=== PATIENT | male | born 1980 | race American Indian/Alaskan Native ===

== ENCOUNTER 2024-07-24 09:15 | Outpatient (RCR) | payer BC, SELFPAY ==
--- NOTE | 2024-07-24 11:06 | CTCCONSULT_ITS ---
[address] [address] RE: FABIOLA PRITCHETT D.O.B.: 1980 AGE: 44 DATE OF CONSULTATION: 07/24/2024 DIAGNOSIS: History of pulmonary embolism likely provoked REFERRING PHYSICIAN: Emerita Tomas([facility]) PRIMARY PHYSICIAN :Ollie Estevez REASON FOR CONSULTATION: Provoked PE during COVID in 2020 on Eliquis HISTORY OF PRESENT ILLNESS: Patient is 44-year-old male who is a chronic cigarette smoker and current smoker. Patient is overwei ght and is here to discuss Eliquis. Patient was diagnosed with a pulmonary embolism when he had COVI D in 2019. He does not know if he was ever diagnosed with a cardiac condition like atrial fibrillati on. Patient has been on Eliquis for last 4 years. Patient is here to discuss that time. 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 GI: No nausea, vomiting, diarrhea or constipation. CVS: No palpitations or angina pains. Respiratory: No cough, chest pain or shortness of breath. VITAL SIGNS: Date 07/24/2024 Time 9:26 AM Vital Signs, Weight and PS ? ??T (F) (F) 98.8 ??P 78 ??B/P (mmHg) 120/81 ??Height (in) (inch) 67 ??Weight (lb) (lb) 216 ??BSA(D) (m*2) 2.09 PHYSICAL EXAMINATION: Conjunctivae is white. Oral cavity is dry. Chest is clear to auscultation. No wheezes or rales audible. CVS: Rhythm regular, no murmurs or gallops present. Abdomen is soft. No hepatosplenomegaly. Extremities: No pedal edema or cyanosis. LABORATORY DATA: Date Time ASSESSMENT: Pulmonary embolism likely provoked COVID is known to cause blood clots I am not sure if patient have any other underlying condition which makes him at high risk of clot oth er than his history of smoking and body weight PLAN: ??Will get records from cardiology for Holter monitor and echo and cardiology notes Will order factor V Leyden deficiency testing protein CandS along with a JAK2 mutation Protein CandS may be possibly normal or low or high as patient is on Eliquis Will check for D-dimer to see if patient have persistent clot If D-dimers are high then we can do CTA chest Advised to continue Eliquis for now and follow-up on the labs and records RTC in 6 to 8 weeks Patient likely have a provoked clot and do not require long-term anticoagulation Before stopping Eliquis will need to review the records and further testing results ORDERS: TAI - 2 Mutation Zhou CALDERON Follow Up 2 Months RETURN TO CLINIC: cc: Moe Estevez, Referring: Emerita Tomas([facility]) Electronically Signed 07/24/2024 at 11:04 AM Ollie Estevez MD Patient: FABIOLA PRITCHETT : 1980 MR#: [id number] Account: [id number] FOLLOW UP NOTE Page 2 of 2
== END 2024-08-19 23:59 | disposition home or self-care (01) ==
LOC: SCTC 09:15
PROVIDERS: PCP Nurse Practitioner Family; Referring Provider Nurse Practitioner Family; Visit Provider Internal Medicine Hematology & Oncology
DX: Z09 Encounter for follow-up examination after completed treatment for conditions other than malignant neoplasm (principal); Z86.711 Personal history of pulmonary embolism; Z79.01 Long term (current) use of anticoagulants
CPT/HCPCS: 99213; G0463

== ENCOUNTER → 2024-07-28 | Outpatient (CLI) | payer BC, SELFPAY ==
[2024-07-28 10:33] LABS: Misc Send Out* See Sep Rpt
[2024-07-28 11:54] LABS: D-Dimer < 250 ng/mL (<600)
[2024-07-31 06:56] LABS: Protein C Antigen, Total* 108 % normal (70-140); Protein S Antigen, Total* 98 % normal (70-140)
[2024-08-04 06:53] LABS: Factor V Leiden Mutation NEGATIVE
== END | disposition home or self-care (01) ==
LOC: SCTO 10:07
PROVIDERS: PCP Nurse Practitioner Family; Referring Provider Internal Medicine Hematology & Oncology; Visit Provider Internal Medicine Hematology & Oncology
DX: D68.59 Other primary thrombophilia (principal)
CPT/HCPCS: 36415; 81219; 81241; 81270; 81279; 81339; 85302; 85305; 85379

== ENCOUNTER 2024-09-04 23:49 | Emergency (ER) | payer BC, SELFPAY ==
[2024-09-04 23:50] VITALS: BMI 33.5
[2024-09-05 00:33] VITALS: BP 152/89; PULSE 86; RESP 20; TEMP 37.1; O2SAT 94
--- NOTE | 2024-09-05 00:38 | XR_ITS ---
Examination: PA lateral chest 2 views TECHNIQUE: Upright PA lateral chest 2 views Exam date and time: September 05, 2024 1246 hours INDICATIONS: Onset shortness of breath today. FINDINGS: Normal heart size Lungs are clear. The osseous structures are intact IMPRESSION: No active disease
--- NOTE | 2024-09-05 00:38 | PD.EDRME ---
Rapid Medical Screening Exam RME Arrival date/time: 09/04/24 23:49 44 yo male present to ED for c/o of SOB for 1 day I have greeted and performed a focused initial assessment of this patient. A comprehensive ED assessment and evaluation of the patient, analysis of all test results, and completion of the medical decision making process will be conducted by additional ED providers. Chief Complaint: Shortness of Breath/Dyspnea Time Seen by Provider: 09/05/24 00:07 Vital signs: Vital Signs Temperature 98.7 F 09/05/24 00:33 Pulse Rate 86 09/05/24 00:33 Respiratory Rate 20 09/05/24 00:33 Blood Pressure 152/89 H 09/05/24 00:33 Pulse Oximetry (%) 94 L 09/05/24 00:33 Oxygen Delivery Method Room Air 09/05/24 00:33
[2024-09-05] MEDS: predniSONE 20 MG TABLET 60 MG PO (00:54)
[2024-09-05 01:20] LABS: Basophils % (Auto) 1 % (0-2.5); Eosinophils # (Auto) 0.4 Thou/mm3 (0.0-0.5); Eosinophils % (Auto) 5 % (0-10); Hematocrit 44.9 % (41.0-53.0); Hemoglobin 15.6 g/dL (13.5-16.0); Immature Granulocytes % (Auto) 0 % (0-0); Immature Granulocytes Auto 0.02 Thou/mm3 (0.00-0.00); Lymphocytes % (Auto) 24 % (10-50); Mean Corpuscular HGB Conc 34.7 g/dl (31.0-37.0); Mean Corpuscular Hemoglobin 30.5 pg (25.0-35.0); Mean Corpuscular Volume 88 fL (80-100); Monocytes # (Auto) 0.8 Thou/mm3 (0.0-0.8); Monocytes % (Auto) 10 % (0-12); Neutrophils % (Auto) 61 % (37-80); Nucleated Red Blood Cell % 0 /100 WBC (0); Platelet Count 234 Thou/mm3 (140-440); RDW Standard Deviation 39.7 fL (35.1-43.9); Red Blood Count 5.12 Miln/mm3 (4.50-5.90); White Blood Count 8.3 Thou/mm3 (3.8-10.6)
[2024-09-05 01:37] LABS: B-Type Natriuretic Peptide < 20 pg/mL (0-100)
[2024-09-05 01:39] LABS: Alanine Aminotransferase 27 U/L (10-49); Albumin/Globulin Ratio 1.8 (1.2-2.2); Alkaline Phosphatase 94 U/L (46-116); Anion Gap 8 (7-16); Aspartate Amino Transferase 25 U/L (0-34); BUN/Creatinine Ratio 8 Ratio (12-20); Bilirubin,Total 0.9 mg/dL (0.3-1.2); Blood Urea Nitrogen 8 mg/dL (9-23); Calcium 10.2 mg/dL (8.3-10.6); Calcium (Corrected) 10.2 mg/dL (8.5-10.1); Carbon Dioxide 25.4 mMol/L (20.0-31.0); Chloride 105 mMol/L (98-107); Estimated Creatinine Clearance 102.5 mL/min (>60); Globulin 2.8 gm/dL (2.3-3.5); Glucose 117 mg/dL (74-106); Lipase 36 U/L (12-53); Osmolality,Calculated 274 (275-295); Potassium 3.9 mMol/L (3.4-5.1); Sodium 138 mMol/L (136-145); Total Protein 7.8 gm/dL (5.7-8.2); Troponin I < 0.020 ng/mL (0.0-0.045); eGFR > 60 See Note
[2024-09-05 02:05] VITALS: BP 144/91; PULSE 89; RESP 18; TEMP 36.4; O2SAT 96
--- NOTE | 2024-09-05 02:05 | EDNOTE_ITS ---
ED SOB =RME/HPI General Chief Complaint: Shortness of Breath/Dyspnea Stated Complaint: SOB, STREP THROAT Time Seen by Provider: 09/05/24 00:07 Arrival date/time: 09/04/24 23:49 43 year old male present to emergency room with c/o of shortness of breath, sore throat, for 1 days SEVERITY: Symptoms are described as being severe with limitations on activities of daily living CONTEXT: The patient is unable to identify any inciting events. DURATION/TIMING: The symptoms started approximately one day ago and have been constant since and have been progressive getting worse. ASSOCIATED SYMPTOMS: The patient is unable to identify any other associated symptoms. MODIFYING FACTORS: The patient is unable to identify any alleviating or aggravating symptoms. PERTINENT ROS: no fevers, no cough, no pleuritic pain, no ripping or tearing sensations, denies any lower extremity edema and no unilateral swelling, no ch est pain no nausea,vomiting, diarrhea, no dizziness/headache no rash no loc/syncope episode no abd/back pain no dsyuria,urgency,frequenc REVIEW OF SYSTEMS: See History of Present Illness - with the exception of those mentioned in the history of present illness, all other systems reviewed and reported as negative GENERAL: In general the patient is awake, interactive, in an emergency department gurney. HEAD/EYES/EARS/NOSE/THROAT: normo-cephalic, atraumatic, mucus membranes are moist, anicteric, palpebral conjunctiva is pink, trachea is midline. CARDIOVASCULAR: regular rate and regular rhythm, no murmurs, heart sounds are not distant, strong pulses in all four extremities that are equal and symmetric bilateral upper and lower extremities, normal capillary refill. CHEST/PULMONARY: normal chest rise and fall, good air movement, scratter wheezing noted. bilaterally, normal inspiratory to expiratory ratios without evidence of respiratory distress. NECK: No midline/Paraspinal tenderness, no step off ROM/Strenght intact No Kernig and bruzinski sign. No trauma ABDOMEN: soft, not tender, no masses appreciated BACK: normal range of motion without pain. NEUROLOGICAL: cranio-facial features are symmetric, moves all four extremities equally without obvious limitations or weakness. EXTREMITY: no tenderness to palpation over the long bones or large joints of the bilateral upper and lower extremities, no joint swelling, no joint erythema, no signs of trauma, no unilateral leg swelling and no peripheral edema. SKIN: warm, dry, well-perfused, no jaundice, no rash, no telangiectasias or petechia. PSYCH: calm, cooperative, no evidence of psychosis or agitation RME / HPI RME / HPI Narrative: 09/04/24 23:49 44 yo male present to ED for c/o of SOB for 1 day I have greeted and performed a focused initial assessment of this patient. A comprehensive ED assessment and evaluation of the patient, analysis of all test results, and completion of the medical decision making process will be conducted by additional ED providers. Related Data Previous Rx's ?Medication ?Instructions ?Recorded hydrocodone 10 mg-acetaminophen 1 tab PO Q6H PRN pain #20 tabs 01/24/20 325 mg tablet (Carman) albuterol sulfate 90 mcg/actuation 1 inh inhalation Q6H PRN shortness 09/05/24 aerosol inhaler of breath or wheezing #6.7 grams azithromycin 500 mg tablet 500 mg PO QDAY 4 days #4 tabs 09/05/24 methylprednisolone 4 mg tablets in 4 mg PO .as directed #21 tabs 09/05/24 a dose pack (Medrol (Devin)) Allergies Allergy/AdvReac Type Severity Reaction Status Date / Time No Known Allergies Allergy Verified 09/04/24 23:52 Course Course Course Narrative: Patient presenting with cough.? Patient afebrile.? No hypoxia.? ?Lung exam within normal limits.? Obtained and reviewed CXR, which did not reveal any acute abnormalities or infiltrates.? ?cbc/cmp, bnp, trop wnl? History, physical exam, and radiographic findings were discussed with the patient.? At this time, it is felt that the most likely explanation for the patient's symptoms is acute bronchitis versus viral upper respiratory infection.? I also considered pneumonia, GERD, pneumothorax, PE but this appears less likely considering the data gathered thus far.? I have instructed the patient to return to the ER at any time if there are any new or worsening symptoms. Provided patient with prescription for cough suppressant.? Supportive treatment options were discussed.? ?The patient expressed understanding of and agreement with this plan.? Opportunity was given for questions prior to discharge and all stated questions were answered to the patient's satisfaction.? Plan:? Prescribed azithromycin, medro dose devin, inhaler? Advised Pt on supportive therapies, including using a vaporizer/humidifer/steam from hot showers, advancement of fluids as tolerated, exercise, nasal saline sprays, rest, avoidance of cold air, avoidance of second-hand smoke, frequent hand-washing w/ soap and water, and OTC acetaminophen or ibuprofen as directed prn for pain control. Instructed Pt to monitor for shaking chills or T>100.5 deg F, persistent cough >7-10d, hemoptysis, delirium or confusion, cyanosis, and respiratory distress. Instructed Pt to f/up w/ PCP in 2-3 days. Pt verbally expressed understanding and all questions were addressed to Pt's satisfaction. Quality Measures none Orders Category Date Time Status Bedside Influenza A&B Antigen Test NOW Care 09/05/24 00:39 Completed EKG (ED ONLY) *Do not use* NOW Care 09/05/24 00:39 Completed EKG (ED Only) Stat Exams 09/05/24 00:38 Ordered XR chest 2V Stat Exams 09/05/24 00:38 Taken BNP [B-Type Natriuretic Peptide] Stat Lab 09/05/24 00:56 Completed CBC Stat Lab 09/05/24 00:56 Completed CMP [Comprehensive Metabolic Panel] Stat Lab 09/05/24 00:56 Completed Lipase Stat Lab 09/05/24 00:56 Completed Troponin I Stat Lab 09/05/24 00:56 Completed Albuterol/Ipratr Rt Ashtyn [Duoneb Rt Ashtyn] Med 09/05/24 00:38 Discontinued 3 ml INH X1 ONE Azithromycin Po [Zithromax PO] Med 09/05/24 02:05 Discontinued 500 mg PO X1 ONE predniSONE Med 09/05/24 00:38 Discontinued 60 mg PO X1 ONE Reevaluation(s) Reevaluation #1: pt is feeling better after treatment, vitals improved, comfortable to go home Vital Signs Vital signs: Vital Signs Temperature 98.7 F 09/05/24 00:33 Pulse Rate 86 09/05/24 00:33 Respiratory Rate 20 09/05/24 00:33 Blood Pressure 152/89 H 09/05/24 00:33 Pulse Oximetry (%) 94 L 09/05/24 00:33 Oxygen Delivery Method Room Air 09/05/24 00:33 Shortness of Breath / Dyspnea Patient data External records reviewed:: [facility] [place] previous records Clinical information provided by:: patient Social determinants that could affect healthcare access:: none Patient has the following chronic illnesses:: none How is presenting disease/condition affected by chronic disease/condition?: no chronic disease Evaluation data The following diagnostics were reviewed and interpreted by me:: lab results and radiology exam(s) Lab and/or radiology exams considered but not ordered:: none Interpretation Summary: basic labs, trop, bnp, covid/flu negative/wnl xray: nad wet read, pending overread by radiologist Medications / Prescriptions Medications or Prescriptions considered but not ordered:: none Medication administrations:: Medication Administration History Discontinued Medications Albuterol/Ipratropium (Albuterol/Ipratropium (Duoneb) Rt Ashtyn 3 Ml Nebu) 3 ml INH X1 ONE Stop: 09/05/24 00:39 Azithromycin (Azithromycin 250 Mg Tablet) 500 mg PO X1 ONE Stop: 09/05/24 02:06 Prednisone (Prednisone 20 Mg Tablet) 60 mg PO X1 ONE Stop: 09/05/24 00:39 Last Admin: 09/05/24 00:54 Dose: 60 mg Documented By: DUDLEY none Consultations Consultation(s) initiated? (list below): No Diagnosis Shortness of Breath Differential Diagnosis: acute exacerbation of chronic obstructive airways disease, congestive heart failure, community acquired pneumonia, asthma with exacerbation and other (anemia bronchitis ) Most likely diagnosis given after review of the tests above:: bronchitis Admission Indicated Admission indicated?: not indicated Admission Request Was there a request for admission?: No Disposition Plan Disposition Plan: Discharge Discharge Attestation Discharge Attestation: The patient and all family members were given an opportunity to ask questions and understood the discharge instructions. Discharge instructions specifically effects, indications for sooner follow up or return to the emergency department, and the expected course of current diagnosis. Patient condition: Stable Discharge Plan Plan Patient Disposition: HOME (Self Care) Health Concerns: Follow with PMD as directed Return to ED if sx worsen Prescriptions/Referrals Prescriptions/Med Rec: New methylprednisolone [Medrol (Devin)] 4 mg tablets,dose pack 4 mg PO .as directed Qty: 21 0RF azithromycin 500 mg tablet 500 mg PO QDAY 4 Days Qty: 4 0RF albuterol sulfate 90 mcg/actuation HFA aerosol inhaler 1 inh inhalation Q6H PRN (Reason: shortness of breath or wheezing) Qty: 6.7 0RF No Action hydrocodone-acetaminophen [Carman] 10-325 mg tablet 1 tab PO Q6H MDD 3 PRN (Reason: pain) Qty: 20 0RF Problem List Clinical Impression: Bronchitis Patient/Caregiver Discharge Instructions Education Materials: ED Bronchitis with Wheezing (Adult) Print Language: Setswana Stand Alone Forms: Catrina Award Info., Patient Portal Info Letter
[2024-09-05] MEDS: AZITHROMYCIN 250 MG TABLET 500 MG PO (02:14)
== END 2024-09-05 02:18 | disposition home or self-care (01) ==
LOC: SERX 09-05 02:21
PROVIDERS: Physician Assistant; Emergency Provider Emergency Medicine; PCP Physician Assistant
DX: J40 Bronchitis, not specified as acute or chronic (principal)
CPT/HCPCS: 36415; 71046; 80053; 83690; 83880; 84484; 85025; 87400; 93005; 99283; J7512; A9270

== ENCOUNTER 2024-09-29 08:47 | Outpatient (RCR) | payer BC, SELFPAY | END 2024-10-17 23:59 | disposition home or self-care (01) | LOC: SCTC 08:47 | PROVIDERS: PCP Nurse Practitioner Family; Referring Provider Nurse Practitioner Family; Visit Provider Nurse Practitioner Family | DX: Z09 Encounter for follow-up examination after completed treatment for conditions other than malignant neoplasm (principal); Z86.711 Personal history of pulmonary embolism; Z79.01 Long term (current) use of anticoagulants | CPT/HCPCS: 99212; G0463 ==

== ENCOUNTER → 2024-09-29 | Outpatient (CLI) | payer BC, SELFPAY ==
[2024-09-29 11:34] LABS: Basophils # (Auto) 0.1 Thou/mm3 (0.0-0.2); Basophils % (Auto) 1 % (0-2.5); Eosinophils # (Auto) 0.3 Thou/mm3 (0.0-0.5); Eosinophils % (Auto) 5 % (0-10); Hematocrit 43.1 % (41.0-53.0); Hemoglobin 14.7 g/dL (13.5-16.0); Immature Granulocytes % (Auto) 0 % (0-0); Immature Granulocytes Auto 0.01 Thou/mm3 (0.00-0.00); Lymphocytes # (Auto) 2.5 Thou/mm3 (1.0-4.8); Lymphocytes % (Auto) 46 % (10-50); Mean Corpuscular HGB Conc 34.1 g/dl (31.0-37.0); Mean Corpuscular Hemoglobin 30.2 pg (25.0-35.0); Mean Corpuscular Volume 89 fL (80-100); Monocytes # (Auto) 0.4 Thou/mm3 (0.0-0.8); Monocytes % (Auto) 6 % (0-12); Neutrophils # (Auto) 2.3 Thou/mm3 (1.8-7.7); Neutrophils % (Auto) 42 % (37-80); Nucleated Red Blood Cell % 0 /100 WBC (0); Platelet Count 208 Thou/mm3 (140-440); RDW Standard Deviation 40.8 fL (35.1-43.9); Red Blood Count 4.86 Miln/mm3 (4.50-5.90); White Blood Count 5.5 Thou/mm3 (3.8-10.6)
[2024-09-29 11:55] LABS: Alanine Aminotransferase 24 U/L (10-49); Albumin, Serum 4.4 gm/dL (3.5-5.0); Albumin/Globulin Ratio 1.8 (1.2-2.2); Alkaline Phosphatase 86 U/L (46-116); Anion Gap 5 (7-16); Aspartate Amino Transferase 22 U/L (0-34); BUN/Creatinine Ratio 11 Ratio (12-20); Bilirubin,Total 0.6 mg/dL (0.3-1.2); Blood Urea Nitrogen 12 mg/dL (9-23); Calcium 9.9 mg/dL (8.3-10.6); Calcium (Corrected) 9.9 mg/dL (8.5-10.1); Carbon Dioxide 28.9 mMol/L (20.0-31.0); Chloride 110 mMol/L (98-107); Creatinine (Component) 1.1 mg/dL (0.6-1.3); Globulin 2.4 gm/dL (2.3-3.5); Glucose 97 mg/dL (74-106); Osmolality,Calculated 286 (275-295); Potassium 4.9 mMol/L (3.4-5.1); Sodium 144 mMol/L (136-145); Total Protein 6.8 gm/dL (5.7-8.2); eGFR > 60 See Note
== END | disposition home or self-care (01) ==
LOC: SCTO 10:48
PROVIDERS: PCP Nurse Practitioner Family; Referring Provider Nurse Practitioner Family; Visit Provider Nurse Practitioner Family
DX: Z86.711 Personal history of pulmonary embolism (principal)
CPT/HCPCS: 36415; 80053; 85025

== ENCOUNTER 2024-11-27 09:01 | Outpatient (RCR) | payer BC, SELFPAY | END 2024-12-17 23:59 | disposition home or self-care (01) | LOC: SCTC 09:01 | PROVIDERS: PCP Physician Assistant; Referring Provider Nurse Practitioner Family; Visit Provider Nurse Practitioner Family | DX: Z09 Encounter for follow-up examination after completed treatment for conditions other than malignant neoplasm (principal); Z86.711 Personal history of pulmonary embolism; Z86.16 Personal history of COVID-19; Z87.891 Personal history of nicotine dependence; Z79.01 Long term (current) use of anticoagulants | CPT/HCPCS: 99212; G0463 ==

== ENCOUNTER → 2024-12-31 | Outpatient (CLI) | payer BC, SELFPAY ==
[2024-12-31 10:40] LABS: Misc Send Out* See Sep Rpt
[2024-12-31 11:35] LABS: Basophils # (Auto) 0.1 Thou/mm3 (0.0-0.2); Basophils % (Auto) 1 % (0-2.5); Eosinophils # (Auto) 0.2 Thou/mm3 (0.0-0.5); Eosinophils % (Auto) 4 % (0-10); Hematocrit 44.8 % (41.0-53.0); Hemoglobin 15.5 g/dL (13.5-16.0); Immature Granulocytes % (Auto) 0 % (0-0); Immature Granulocytes Auto 0.02 Thou/mm3 (0.00-0.00); Lymphocytes # (Auto) 2.8 Thou/mm3 (1.0-4.8); Lymphocytes % (Auto) 47 % (10-50); Mean Corpuscular HGB Conc 34.6 g/dl (31.0-37.0); Mean Corpuscular Hemoglobin 30.6 pg (25.0-35.0); Mean Corpuscular Volume 89 fL (80-100); Monocytes # (Auto) 0.4 Thou/mm3 (0.0-0.8); Monocytes % (Auto) 6 % (0-12); Neutrophils # (Auto) 2.5 Thou/mm3 (1.8-7.7); Neutrophils % (Auto) 41 % (37-80); Nucleated Red Blood Cell % 0 /100 WBC (0); Platelet Count 260 Thou/mm3 (140-440); RDW Standard Deviation 39.3 fL (35.1-43.9); Red Blood Count 5.06 Miln/mm3 (4.50-5.90)
[2024-12-31 11:44] LABS: Alanine Aminotransferase 31 U/L (10-49); Albumin, Serum 4.5 gm/dL (3.5-5.0); Albumin/Globulin Ratio 1.9 (1.2-2.2); Alkaline Phosphatase 86 U/L (46-116); Anion Gap 10 (7-16); Aspartate Amino Transferase 24 U/L (0-34); BUN/Creatinine Ratio 16 Ratio (12-20); Bilirubin,Direct 0.2 mg/dL (0.0-0.3); Bilirubin,Total 0.8 mg/dL (0.3-1.2); Blood Urea Nitrogen 16 mg/dL (9-23); Carbon Dioxide 27.7 mMol/L (20.0-31.0); Cardiac Risk Estimate 5.2 RATIO (4.0-6.7); Chloride 105 mMol/L (98-107); Cholesterol 236 mg/dL (132-200); Globulin 2.4 gm/dL (2.3-3.5); Glucose 102 mg/dL (74-106); HDL Cholesterol 45 mg/dL (40-60); LDL Cholesterol,Calculated 147 mg/dL (0-130); Osmolality,Calculated 286 (275-295); Potassium 4.4 mMol/L (3.4-5.1); Sodium 143 mMol/L (136-145); Total Protein 6.9 gm/dL (5.7-8.2); Triglycerides 222 mg/dL (30-150); eGFR > 60 See Note
[2024-12-31 11:53] LABS: D-Dimer < 250 ng/mL (<600)
[2025-01-05 07:36] LABS: Antithrombin III, Activity 100 % normal (80-135); Antithrombin III, Antigen 95 % normal (80-120); PTT-LA Screen 38 seconds (< OR = 40); Protein C Activity* 169 % normal (70-180); Protein S Activity* 94 % normal (70-150); dRVVT Screen 41 seconds (< OR = 45)
[2025-01-08 07:04] LABS: Cardiolipin Ab IgA <2.0 APL-U/mL; Cardiolipin Ab IgG <2.0 GPL-U/mL
[2025-01-09 06:55] LABS: B2-Glycoprotein I Ab IgA <2.0 U/mL; B2-Glycoprotein I Ab IgG <2.0 U/mL; B2-Glycoprotein I Ab IgM 8.2 U/mL; Cardiolipin Ab IgM 8.5 MPL-U/mL; Direct LDL* 171 mg/dL (<100); Factor V Leiden Mutation NEGATIVE; Phos.Serine Ab IgG 10 U (< OR = 30); Phos.Serine Ab IgM <9 U (< OR = 30)
== END | disposition home or self-care (01) ==
LOC: COPL 10:11
PROVIDERS: PCP Physician Assistant; Referring Provider Nurse Practitioner Family; Visit Provider Internal Medicine Cardiovascular Disease
DX: E78.5 Hyperlipidemia, unspecified (principal); I10 Essential (primary) hypertension; Z86.711 Personal history of pulmonary embolism
CPT/HCPCS: 36415; 80053; 80061; 81241; 82248; 83721; 85025; 85300; 85301; 85303; 85306; 85379; 85613; 85730; 86146; 86147; 86148